=== PATIENT | female | born 1975 | race Caucasian/White ===

== ENCOUNTER 2018-01-18 16:00 | Emergency (ER) | payer MEDICAID ==
[~2018-01-18] VITALS: Ht 149.9 cm; Wt 59.0 kg
[2018-01-18 16:46] VITALS: BP_SYST 106
--- NOTE | 2018-01-18 16:52 | NUR ---
Patient to ER bed H1 to gown for evaluation. Side rails up. Report given to Boogie CAR.
--- NOTE | 2018-01-18 17:06 | NUR ---
Pt presented with a cough x 7 days, chest pain upon cough, congestion. No current nausea or dizziness. Hx of left hip pain, depression and opiate addiction. Pt ambulatory, wearing a face mask, and accompanied by a friend.
[2018-01-18 17:23] LABS: BILIRUBIN,URINE NEGATIVE (NEGATIVE); CLARITY/URINE CLEAR (CLEAR); COLOR,URINE YELLOW (YELLOW); GLUCOSE,URINE NEGATIVE (NEGATIVE); KETONES,URINE NEGATIVE (NEGATIVE); LEUKOCYTE ESTERASE ,URINE NEGATIVE (NEGATIVE); NITRITE, URINE NEGATIVE (NEGATIVE); PROTEIN URINE NEGATIVE (NEGATIVE); UROBILINOGEN,URINE 0.2 (0.2-1.0)
[2018-01-18 17:25] LABS: BLOOD, URINE TRACE (NEGATIVE)
--- NOTE | 2018-01-18 17:25 | NUR ---
Dagoberto pressley in ED - 01/18/18 at 1747 by SDNURFL MARE Casey at bedside examining patient.
[2018-01-18 17:55] LABS: BACTERIA,URINE FEW /HPF (None Seen); RBC,URINE 0-3 /HPF (0-3); WBC,URINE 0-3 /HPF (0-3)
[2018-01-18 17:56] LABS: MUCUS,URINE None Seen /LPF (None Seen)
[2018-01-18] MEDS ORDERED: guaiFENesin/DEXTROMETHORPHAN 1 EACH TAB.ER.12H PO ONE (18:30)
[2018-01-18] MEDS ORDERED: AZITHROMYCIN 250 MG TABLET PO ONE (18:30)
[2018-01-18 19:32] VITALS: BP_SYST 108
--- NOTE | 2018-01-18 19:32 | NUR ---
Patient given written and verbal discharge instructions and verbalizes understanding. ER MD discussed with patient the results and treatment provided. Patient in stable condition. ID arm band removed. Rx of Zithromax 250 mg tab given. Patient educated on pain management and to follow up with PMD. Pain Scale 0/10. Opportunity for questions provided and answered. Medication side effect fact sheet provided.
== END 2018-01-18 19:32 | disposition home or self-care (01) ==
LOC: SED 16:00
DX: J40 Bronchitis, not specified as acute or chronic (principal)
CPT/HCPCS: 36415; 71046; 81000; 86710; 99285; Q0144